=== PATIENT | female | born 1975 | race American Indian/Alaskan Native ===

== ENCOUNTER 2018-10-23 21:18 | Emergency (ER) | payer BC ==
[2018-10-23] MEDS ORDERED: Cyclobenzaprine 10 MG Tab PO ONE (21:19)
[2018-10-23 21:43] VITALS: BP 127/61
--- NOTE | 2018-10-23 21:45 | EDM.PDOC ---
ED HPI GENERAL MEDICAL PROBLEM - General Chief Complaint: Back Pain or Injury Stated Complaint: BACK PAIN [id number] Time Seen by Provider: 10/23/18 21:45 Source of Information: Reports: Patient, RN, RN Notes Reviewed History Limitations: Reports: No Limitations - History of Present Illness INITIAL COMMENTS - FREE TEXT/NARRATIVE: Pt to ER with c/o left middle back pain. She states that her significant other is in a wheelchair and has been having multiple falls recently. She states she has been lifting him off the floor. She states her back has been giving her pain , but today she was attempting to take her bra off when she felt a "pop" in the mid back, to the left middle back. She states she has pain under the left shoulder blade around to under the left arm. Pt states the pain fluctuates with position from 6-9/10. 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 ED EXAM,LOWER BACK PAIN/INJURY - Physical Exam Exam: See Below Exam Limited By: No Limitations General Appearance: Alert, WD/WN, Mild Distress Eye Exam: Bilateral Eye: EOMI, Normal Inspection Ears: Normal External Exam, Hearing Grossly Normal Nose: Normal Inspection Throat/Mouth: Normal Inspection, Normal Voice, No Airway Compromise Head: Atraumatic, Normocephalic Neck: Normal Inspection, Supple, Non-Tender, Full Range of Motion Respiratory/Chest: No Respiratory Distress, Lungs Clear, Normal Breath Sounds, No Accessory Muscle Use, Chest Non-Tender Cardiovascular: Normal Peripheral Pulses, Regular Rate, Rhythm, No Edema, No Gallop, No JVD, No Murmur, No Rub GI/Abdominal: Normal Bowel Sounds, Soft, Non-Tender (Female) Exam: Deferred Rectal (Female) Exam: Deferred Back Exam: Normal Inspection, Decreased Range of Motion, Muscle Spasm (Left mid back, wrapping around to under the left arm) Extremities: Normal Inspection, Normal Range of Motion, Non-Tender, No Pedal Edema, Normal Capillary Refill Neurological: Alert, Normal Mood/Affect, Normal Dorsiflexion, CN II-XII Intact, Normal Plantar Flexion, Normal Gait, Normal Reflexes, No Motor/Sensory Deficits , Oriented x 3 Psychiatric: Normal Affect Skin Exam: Warm, Dry, Intact, Normal Color, No Rash Lymphatic: No Adenopathy Course - Vital Signs Last Recorded V/S: Last Vital Signs Temp 98.3 F 10/23/18 21:42 Pulse 42 L 10/23/18 21:42 Resp 18 10/23/18 21:42 BP 127/61 10/23/18 21:42 Pulse Ox 100 10/23/18 21:42 - Orders/Labs/Meds Orders: Active Orders 24 hr Category Date Time Status Lumbar Spine 2 or 3V [CR] Urgent Exams 10/23/18 21:58 Ordered Ribs 2V wo Chest Lt [CR] Urgent Exams 10/23/18 21:58 Ordered Thoracic Spine 2V [CR] Urgent Exams 10/23/18 21:58 Ordered - Radiology Interpretation Free Text/Narrative:: Lumbar xray: FINDINGS: Vertebrae: The lumbar spine demonstrates mild degenerative changes at multiple levels. There is no evidence of acute fracture. Vertebral heights are maintained. Disc space narrowing noted L4-5 and L5 S1. Intraperitoneal space: Surgical clips right upper quadrant. Soft tissues: Normal. IMPRESSION: The lumbar spine demonstrates mild degenerative changes at multiple levels. Thank you for allowing us to participate in the care of your patient. Dictated and Authenticated by: Amaury Sanabria DO 10/23/2018 11:26 PM Central Time ([place] & [place]) Thoracic xray: FINDINGS: Vertebrae: The thoracic spine demonstrates mild degenerative changes at multiple levels. There is no evidence of acute fracture. Vertebral heights and disc spaces are maintained. Intraperitoneal space: Surgical clips project over the right upper quadrant. Soft tissues: Normal. IMPRESSION: The thoracic spine demonstrates mild degenerative changes at multiple levels. Thank you for allowing us to participate in the care of your patient. Dictated and Authenticated by: Amaury Sanabria DO Left Rib xray: FINDINGS: Bones/joints: No evidence of fracture or bony abnormality. Soft tissues: Normal. IMPRESSION: No acute findings. Thank you for allowing us to participate in the care of your patient. Dictated and Authenticated by: Amaury Sanabria DO 10/23/2018 11:28 PM Central Time ([place] & [place]) See rad report Departure - Departure Time of Disposition: 23:38 Disposition: Home, Self-Care 01 Condition: Good Clinical Impression: Muscle spasm - Discharge Information *PRESCRIPTION DRUG MONITORING PROGRAM REVIEWED*: No *COPY OF PRESCRIPTION DRUG MONITORING REPORT IN PATIENT PATSY: No Instructions: Muscle Cramps and Spasms, [id number], Back Pain, Adult, Easy-to -Read, Heat Therapy, [id number], Muscle Strain, [id number], Back Injury Prevention, [id number] Forms: ED Department Discharge Additional Instructions: May use Tylenol and/or ibuprofen as directed for pain RX: Flexeril for muscle spasms Alternate heat and ice as tolerated Follow up with your primary care facility if no improvement - My Orders Last 24 Hours: My Active Orders 10/23/18 21:58 Lumbar Spine 2 or 3V [CR] Urgent Ribs 2V wo Chest Lt [CR] Urgent Thoracic Spine 2V [CR] Urgent - Assessment/Plan Last 24 Hours: My Active Orders 10/23/18 21:58 Lumbar Spine 2 or 3V [CR] Urgent Ribs 2V wo Chest Lt [CR] Urgent Thoracic Spine 2V [CR] Urgent
[2018-10-23] MEDS ORDERED: Cyclobenzaprine 10 MG Tab ONE (23:42)
== END 2018-10-23 23:45 | disposition home or self-care (01) ==
LOC: DL.ED 21:18
DX: M62.830 Muscle spasm of back (principal); Z88.5 Allergy status to narcotic agent
CPT/HCPCS: 71100-LT; 72070; 72100; 99283-25; A9270-GY

== ENCOUNTER 2021-05-25 12:21 | Emergency (ER) | payer BC ==
[2021-05-25] MEDS ORDERED: Nitroglycerin 0.4 MG Tab.SL SL ONE (12:38)
[2021-05-25 12:40] VITALS: BP 144/74; PULSE 72
--- NOTE | 2021-05-25 12:54 | EDM.PDOC ---
ED HPI GENERAL MEDICAL PROBLEM - General Chief Complaint: Chest Pain Stated Complaint: CHEST PAIN Time Seen by Provider: 05/25/21 12:40 - History of Present Illness INITIAL COMMENTS - FREE TEXT/NARRATIVE: Bebe is a 45-year-old woman who presents with 2 episodes this morning of chest pain. She states that it seems to start in her right neck and then radiates down into her right chest. She states this is happened previously, but not for quite some time. This morning, the episodes were not associated with any, shortness of breath, no nausea or vomiting, no dizziness. She has not had any recent issues with heartburn. Bebe has no past history of asthma or other respiratory diseases, no past history of cardiac disease Middle Chest Pain Score (Numeric/FACES): 1 - Related Data Allergies Allergy/AdvReac Type Severity Reaction Status Date / Time codeine Allergy Stomach Verified 05/25/21 12:45 Ache Home Meds: Home Meds Ibuprofen 400 mg PO Q6HR PRN 12/18/19 [History] hydrOXYzine HCL [hydrOXYzine] 25 mg PO TID PRN 12/18/19 [History] Past Medical History - Past Health History Medical/Surgical History: Denies Medical/Surgical History HEENT History: Reports: None Cardiovascular History: Reports: Arrhythmia Respiratory History: Reports: Bronchitis, Recurrent Gastrointestinal History: Reports: Cholelithiasis Genitourinary History: Reports: None 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: Musculoskeletal History: Reports: Arthritis Neurological History: Reports: None Psychiatric History: Reports: Anxiety Endocrine/Metabolic History: Reports: None Hematologic History: Reports: None Immunologic History: Reports: None Oncologic (Cancer) History: Reports: None Dermatologic History: Reports: None - Infectious Disease History Infectious Disease History: Reports: Chicken Pox - Past Surgical History Head Surgeries/Procedures: Reports: None Cardiovascular Surgical History: Reports: Other (See Below) Other Cardiovascular Surgeries/Procedures: Cardiac Catheterization GI Surgical History: Reports: Cholecystectomy Social & Family History - Family History Family Medical History: No Pertinent Family History Cardiac: Reports: Aneurysm Oncologic: Reports: Breast, Uterine Other Oncologic Family History: Breast - Grandma; Uterur-Aunt - Tobacco Use Tobacco Use Status *Q: Former Tobacco User Used Tobacco, but Quit: Yes Month/Year Tobacco Last Used: august Second Hand Smoke Exposure: No - Caffeine Use Caffeine Use: Reports: Coffee, Soda - Recreational Drug Use Recreational Drug Use: No ED ROS GENERAL - Review of Systems Review Of Systems: See Below Constitutional: Denies: Fever, Chills HEENT: Denies: Vision Change Respiratory: Denies: Shortness of Breath, Cough Cardiovascular: Reports: Other (See HPI) GI/Abdominal: Denies: Hematochezia, Melena, Nausea, Vomiting : Denies: Dysuria, Hematuria Musculoskeletal: Denies: Joint Pain, Joint Swelling Hematologic/Lymphatic: Denies: Easy Bleeding, Easy Bruising Free Text/Narrative/Comment: Rest of her review of systems is complete and negative ED EXAM, GENERAL - Physical Exam Exam: See Below Free Text/Narrative:: General: Bebe is a 45-year-old woman in no acute distress Oropharynx is clear, mucous membranes are moist Heart: Regular rate and rhythm, no murmurs Lungs: Clear to auscultation throughout Abdomen: Soft, nontender to palpation, normal bowel sounds heard throughout, no organomegaly is detected PA and lateral chest x-ray does not show any sign of infiltrate or lesion #1 Interpretation EKG Date: 05/25/21 Rhythm: NSR ST-T: Normal QT: Normal Comparison: NA - No Prior EKG EKG Interpretation Comments: ECG normal, no ST-T changes noted Course - Vital Signs Last Recorded V/S: Last Vital Signs Temp 97.2 F 05/25/21 12:33 Pulse 72 05/25/21 12:33 Resp 16 05/25/21 12:33 BP 144/74 H 05/25/21 12:33 Pulse Ox 98 05/25/21 12:33 - Orders/Labs/Meds Labs: Laboratory Tests 05/25/21 05/25/21 Range/Units 12:56 12:56 WBC 10.4 H (5.0-10.0) 10^3/uL RBC 4.15 L (4.2-5.4) 10^6/uL Hgb 13.1 (12.0-16.0) g/dL Hct 38.9 (37.0-47.0) % MCV 93.7 (80-100) fL MCH 31.6 (27.0-34.0) pg MCHC 33.7 (33.0-35.0) g/dL Plt Count 295 (150-450) 10^3/uL Neut % (Auto) 64.2 (42.2-75.2) % Lymph % (Auto) 23.6 (20.5-50.1) % Polk % (Auto) 9.2 H (2-8) % Eos % (Auto) 2.6 (1.0-3.0) % Baso % (Auto) 0.4 (0.0-1.0) % Sodium 140 (136-145) mmol/L Potassium 4.4 (3.5-5.1) mmol/L Chloride 104 (98-107) mmol/L Carbon Dioxide 26 (21-32) mmol/L Anion Gap 14.4 H (7-13) mEq/L BUN 10 (7-18) mg/dL Creatinine 0.86 (0.55-1.02) mg/dL Est Cr Clr Drug Dosing 85.09 mL/min Estimated GFR (MDRD) > 60 BUN/Creatinine Ratio 11.6 (No establ ref range) Glucose 88 (70-99) mg/dL Calcium 8.4 L (8.5-10.1) mg/dL Total Bilirubin 0.6 (0.2-1.0) mg/dL AST 15 (15-37) U/L ALT 18 (14-59) U/L Alkaline Phosphatase 60 (46-116) U/L Troponin I High Sens 5 (<=51) pg/mL Total Protein 7.0 (6.4-8.2) g/dL Albumin 3.5 (3.4-5.0) g/dL Globulin 3.5 Albumin/Globulin Ratio 1.0 Meds: Medications Discontinued Medications Generic Name Dose Route Start Last Admin Trade Name Freq PRN Reason Stop Dose Admin Nitroglycerin 0.4 mg 05/25/21 12:38 Nitroglycerin 0.4 Mg Tab.Sl SL 05/25/21 12:39 ONETIME ONE Departure - Departure Time of Disposition: 13:48 Disposition: Home, Self-Care 01 Clinical Impression: Atypical chest pain Instructions: Nonspecific Chest Pain, Adult Referrals: PCP,None [Primary Care Provider] - Forms: ED Department Discharge Additional Instructions: Follow up with your primary care provider as soon as possible Sepsis Event Note (ED) - Evaluation Sepsis Screening Result: No Definite Risk - Problem List & Annotations (1) Chest pain SNOMED Code(s): 47636996 Code(s): R07.9 - CHEST PAIN, UNSPECIFIED Status: Acute Qualifiers: Chest pain type: unspecified Qualified Code(s): R07.9 - Chest pain, unspecified - Problem List Review Problem List Initiated/Reviewed/Updated: Yes - Assessment/Plan Assessment:: 1. Nonspecific chest pain in a 45-year-old woman, most likely pleurisy Plan: 1. I recommend to Bebe that she make an appointment as soon as possible with her primary care provider, to discuss a outpatient exercise stress test. Now that this is happened a number of times for her, I think this would be an important work-up for her going forward. She will return to the ER or clinic immediately if she has any further chest pain.
--- NOTE | 2021-05-25 13:07 | CR ---
EXAMINATION: Chest 2V SEX: Female AGE: 45 years CLINICAL HISTORY: 45-year-old female with chest pain. Interpretation: No acute new cardiopulmonary abnormality since 23 October 2018 comparison. Multilevel disc disease. External hospital monitor leads. Normal cardiac silhouette (size and configuration). No pulmonary vascular congestion, cephalization of flow or alveolar edema. No dependent pleural fluid accumulation (effusions). No lung mass or hilar/mediastinal lymphadenopathy. No alveolar infiltrates, air bronchograms, cystic/bullous emphysema, or peripheral "groundglass" interstitial densities. No pneumothorax or pneumomediastinum. (Surgical clips gallbladder fossa RUQ)
[2021-05-25 13:22] LABS: ANION GAP 14.4 mEq/L (7-13); CHLORIDE,CL 104 mmol/L (98-107); SODIUM,NA 140 mmol/L (136-145)
== END 2021-05-25 13:55 | disposition home or self-care (01) ==
LOC: DL.ED 12:21
DX: R07.89 Other chest pain (principal); Z88.5 Allergy status to narcotic agent; Z87.891 Personal history of nicotine dependence
CPT/HCPCS: 36415; 71046; 80053; 84484; 85025; 99285-25

== ENCOUNTER 2022-01-28 12:31 | Emergency (ER) | payer BC, OTHER ==
[2022-01-28 12:53] VITALS: BP 146/98; PULSE 79
== END 2022-01-28 13:14 | disposition home or self-care (01) ==
LOC: DL.ED 12:31
DX: S40.022A Contusion of left upper arm, initial encounter (principal); F17.210 Nicotine dependence, cigarettes, uncomplicated; Z88.5 Allergy status to narcotic agent; W22.09XA Striking against other stationary object, initial encounter
CPT/HCPCS: 99283

== ENCOUNTER 2024-11-01 13:52 | Emergency (ER) | payer SELFPAY ==
[2024-11-01] MEDS ORDERED: Sodium Chloride 0.9% 10 ML Syringe FLUSH PRN (13:59)
[2024-11-01 14:15] VITALS: BP 136/79; PULSE 85
[2024-11-01 14:21] LABS: BASOPHILS PERCENT AUTO 0.3 % (0.0-1.0); EOSINOPHILS PERCENT AUTO 1.8 % (1.0-3.0); HEMATOCRIT 40.6 % (37.0-47.0); HEMOGLOBIN 13.1 g/dL (12.0-16.0); LYMPHOCYTES PERCENT AUTO 20.8 % (20.5-50.1); MEAN CORPUSCULAR HEMOGLOBIN 29.6 pg (27.0-34.0); MEAN CORPUSCULAR HGB CONC 32.3 g/dL (33.0-35.0); MEAN CORPUSCULAR VOLUME 91.6 fL (80-100); NEUTROPHILS PERCENT AUTO 69.1 % (42.2-75.2); PLATELET COUNT,PLT 376 10^3/uL (150-450); RED BLOOD CELL COUNT 4.43 10^6/uL (4.2-5.4); WHITE BLOOD CELL COUNT,WBC 12.5 10^3/uL (5.0-10.0)
[2024-11-01 14:45] LABS: INR 0.9 (0.9-1.2); PROTHROMBIN TIME 9.9 SEC (9.0-12.0); PTT,PARTIAL THROMBOPLSTIN TIME 25.6 SEC (22.0-34.0)
[2024-11-01 15:07] LABS: A/G RATIO 0.9; ALBUMIN 3.6 g/dL (3.4-5.0); ANION GAP 14.6 mEq/L (7-13); BILIRUBIN TOTAL 0.6 mg/dL (0.2-1.0); BUN/CREATININE RATIO 10.5 (No establ ref range); C-REACTIVE PROTEIN 1.2 ng/dL (<=0.50); CREATININE 0.95 mg/dL (0.55-1.02); EST CRCL DRUG DOSING (CG) 73.85 mL/min; POTASSIUM,K 3.6 mmol/L (3.5-5.1); PROTEIN TOTAL,TP 7.7 g/dL (6.4-8.2); TSH ULTRASENSITIVE 1.19 uIU/mL (0.36-3.74)
== END 2024-11-01 15:25 | disposition home or self-care (01) ==
LOC: DL.ED 13:52
DX: R07.89 Other chest pain (principal); R20.2 Paresthesia of skin; Z88.5 Allergy status to narcotic agent; Z79.899 Other long term (current) drug therapy; Z90.49 Acquired absence of other specified parts of digestive tract
CPT/HCPCS: 36415; 71045; 80053; 82607; 84443; 84484; 85025; 85610; 85730; 86140; 93005; 93010; 99284; 99285